=== PATIENT | female | born 1950 ===

== ENCOUNTER 2018-08-26 13:46 | Outpatient (CLI) | payer MEDICARE, OTHER | END 2018-08-26 13:47 | disposition home or self-care (01) | LOC: DI 13:46 | PROVIDERS: ATTEND Registered Nurse | DX: Z12.31 Encounter for screening mammogram for malignant neoplasm of breast (principal) | CPT/HCPCS: 77063; 77067 ==

== ENCOUNTER 2018-08-29 14:17 | Outpatient (CLI) | payer MEDICARE, OTHER ==
--- NOTE | 2018-08-30 09:25 | DEXA Report ---
Reason: OSTEOPOROSIS Procedure Date: 08/29/2018 Accession Number: [id number] / [id number] Procedure: DEX - Dexa Spine and/or Hip CPT Code: FULL RESULT: EXAM: Dexa Spine and/or Hip DATE: 08/29/2018 2:48 PM CLINICAL HISTORY: OSTEOPOROSIS TECHNIQUE: Dual energy x-ray absorptiometry (DXA) was performed on a [employer] System. Regions measured are the AP Spine, femoral neck, and if needed forearm. COMPARISON: None. In accordance with the International Society for Clinical Densitometry (ISCD) guidelines, data from previous exams may be reanalyzed using current recommendations and techniques. This is done to allow a more accurate basis for comparison with the current study. FINDINGS: The data for the lumbar spine is as follows: BMD (g/cm/cm) T-SCORE Z-SCORE REGION L1 0.647 -4.0 -1.9 L2 0.572 -5.2 -3.1 L3 0.613 -4.9 -2.8 L4 0.552 -5.4 -3.3 TOTAL 0.594 -4.9 -2.8 NOTE: All evaluable vertebrae are used for classification The data for the hip is as follows: BMD (g/cm/cm) T-SCORE Z-SCORE REGION Neck 0.626 -3.0 -1.0 TOTAL 0.593 -3.3 -1.5 IMPRESSION: THE WHO CLASSIFICATION BASED ON THE INTERNATIONAL REFERENCE STANDARD IS OSTEOPOROSIS. THE FRACTURE RISK IS HIGH. RECOMMENDATION: Patients with diagnosis of osteoporosis or osteopenia should have regular bone mineral density assessment. For those eligible for Medicare, routine testing is allowed once every 2 years. Testing frequency can be increased for patients who have rapidly progressing disease or for those who are receiving medical therapy to restore bone mass. COMMENT: World Health Organization (WHO) definitions for osteoporosis and osteopenia: NORMAL BMD: T-score at -1.0 or higher, fracture risk is low OSTEOPENIA BMD: T-score between -1.0 and -2.5, fracture risk is increased. OSTEOPOROSIS BMD: T-score at -2.5 or lower, fracture risk is high. National Osteoporosis Foundation recommends: 1. Obtain adequate dietary calcium (at least 1200 mg per day) and vitamin D (400-800 international units per day). 2. Participate, as appropriate, in regular weightbearing and muscle-strengthening exercise. 3. Avoid tobacco use and reduce alcohol and caffeine intake. 4. For more detailed information see the website at www.NOF.org.
== END 2018-08-29 14:18 | disposition home or self-care (01) ==
LOC: DI 14:17
PROVIDERS: ATTEND Registered Nurse
DX: M81.0 Age-related osteoporosis without current pathological fracture (principal)
CPT/HCPCS: 77080

== ENCOUNTER 2022-07-17 08:00 | Outpatient (CLI) | payer MEDICARE, OTHER | END 2022-07-17 23:59 | disposition home or self-care (01) | LOC: LAB 08:00 | PROVIDERS: ATTEND Registered Nurse | DX: R39.15 Urgency of urination (principal) | CPT/HCPCS: 87086 ==

== ENCOUNTER 2022-09-01 07:37 | Outpatient (CLI) | payer MEDICARE, OTHER ==
--- NOTE | 2022-09-01 10:10 | Ultrasound Report ---
PROCEDURE: Abdomen Limited INDICATIONS: RIGHT UPPER QUAD PAIN TECHNIQUE: Real-time focused scanning was performed of the abdomen, with image documentation. COMPARISON: None FINDINGS: The liver measures 14 cm, within normal limits. No focal lesions or abnormal echotexture i dentified. Cholelithiasis. No sonographic Torre sign. No wall thickening. No biliary ductal dilation. Pancreas is within normal limits in the visualized portions. The partially seen right kidney is withi n normal limits. The proximal aorta within normal limits. The IVC is patent. IMPRESSION: Cholelithiasis without sonographic Torre's sign. No biliary ductal dilation. Reviewed by: Addi Pradhan MD on 09/01/2022 10:09 AM PST Approved by: Addi Pradhan MD on 09/01/2022 10:09 AM PST Station ID: [id number]
== END 2022-09-01 07:38 | disposition home or self-care (01) ==
LOC: DI 07:37
PROVIDERS: ATTEND Physician Assistant
DX: R10.11 Right upper quadrant pain (principal); K80.20 Calculus of gallbladder without cholecystitis without obstruction